=== PATIENT | female | born 1990 | race Caucasian/White ===

== ENCOUNTER 2016-07-18 14:11 | Inpatient (IN) | payer BC ==
[~2016-07-18] VITALS: Ht 170.2 cm; Wt 106.8 kg
[~2016-07-18 14:11] MED LIST: PRENATAL MVI PO
[2016-08-14] VITALS (43 sets, daily range): BP systolic 97–153; BP diastolic 53–87; PULSE 55–82; TEMP 89–98.4
[2016-08-14 07:56] LABS: MEAN CELL VOLUME 96 fl (80.0-100.0); MEAN CORPUSCULAR HGB CONC 34 g/dl (33.0-37.0); MEAN PLATELET VOLUME 8.9 fl (7.4-10.4); PLATELET COUNT 383 K/mm3 (130-400); RED BLOOD COUNT 3.44 M/mm3 (4.10-5.30); REDCELL DISTRIBUTION WIDTH-CV 13.6 % (11.5-14.5); WHITE BLOOD COUNT 19.8 K/mm3 (4.8-10.8)
[2016-08-14 07:57] LABS: ADD PATHOLOGY DIFF REVIEW NO; HEMATOCRIT 32.9 % (37.0-47.0); HEMOGLOBIN 11.3 g/dl (12.5-16.0); MEAN CORPUSCULAR HEMOGLOBIN 33 pg (27.0-31.0)
[2016-08-14 09:12] LABS: BAND 7 % (0-10); EOSINOPHIL 1 % (0-4); NEUTROPHILS 69 % (42.0-75.2); TOTAL CELLS COUNTED 100
[2016-08-14 09:13] LABS: PLATELET ESTIMATE NORMAL (NORMAL)
[2016-08-15 01:10] VITALS: BP 95/48; PULSE 66; TEMP 98.2
[2016-08-15 05:20] VITALS: BP 92/49; PULSE 67; TEMP 98.3
[2016-08-15 07:00] VITALS: BP 100/58; PULSE 60; TEMP 97.7
[2016-08-15] MEDS ORDERED: IBU800 M1 PO (08:52)
[2016-08-15 16:42] VITALS: BP 102/47; PULSE 59; TEMP 98
[2016-08-15 19:08] VITALS: BP 114/43; PULSE 60; TEMP 97.7
[2016-08-16 07:22] VITALS: BP 110/68; PULSE 76; TEMP 98
== END 2016-08-16 10:37 | disposition home or self-care (01) | DRG 775 ==
LOC: EDSTATUS 08-11 09:18 → LDRO 08-11 14:11 → OB 08-14 06:56 → LDR 08-14 06:56 → OB 08-14 20:00
PROVIDERS: Student in an Organized Health Care Education/Training Program
PROC: 10E0XZZ Delivery of Products of Conception, External Approach (ICD-10-PCS; principal; 2016-08-14)
PROC: 0KQM0ZZ Repair Perineum Muscle, Open Approach (ICD-10-PCS; 2016-08-14)
PROC: 3E033VJ Introduction of Other Hormone into Peripheral Vein, Percutaneous Approach (ICD-10-PCS; 2016-08-14)
DX: O48.0 Post-term pregnancy (principal); O99.334 Smoking (tobacco) complicating childbirth; F17.210 Nicotine dependence, cigarettes, uncomplicated; O70.1 Second degree perineal laceration during delivery; O99.213 Obesity complicating pregnancy, third trimester; E66.9 Obesity, unspecified; Z68.30 Body mass index [BMI] 30.0-30.9, adult; Z3A.40 40 weeks gestation of pregnancy; Z37.0 Single live birth
CPT/HCPCS: J2405; J2590; J7120

== ENCOUNTER → 2017-01-10 | Outpatient (CLI) | payer BC ==
[~2017-01-10] MED LIST changes: +IBU800 M1 PO
== END ==
LOC: ZCOL.LAB 15:40
DX: L02.31 Cutaneous abscess of buttock (principal)

== ENCOUNTER 2019-08-02 16:48 | Emergency (ER) | payer MEDICAID ==
[~2019-08-02] VITALS: Ht 170.2 cm; Wt 94.1 kg
[2019-08-02 17:01] VITALS: TEMP 97.8
[2019-08-02 18:20] LABS: BASO % 0.5 % (0.0-2.0); EOS # 0.2 (0.0-0.7); EOS % 2.3 % (0-4.0); GRAN # 4.9 (1.4-6.5); HEMOGLOBIN 12.2 g/dl (12.5-16.0); LYMPH # 2.5 (1.2-3.4); LYMPH % 29.2 % (20.0-51.0); MEAN CELL VOLUME 95 fl (80.0-100.0); MEAN CORPUSCULAR HEMOGLOBIN 32 pg (27.0-31.0); MEAN CORPUSCULAR HGB CONC 34 g/dl (33.0-37.0); MEAN PLATELET VOLUME 8.6 fl (7.4-10.4); MONO # 0.8 (0.1-0.6); MONO % 9.5 % (1.7-9.3); PLATELET COUNT 291 K/mm3 (130-400); RED BLOOD COUNT 3.78 M/mm3 (4.10-5.30); REDCELL DISTRIBUTION WIDTH-CV 12.8 % (11.5-14.5)
[2019-08-02 18:58] LABS: COLLECTION METHOD CLEAN CATCH
[2019-08-02 18:59] LABS: ALBUMIN 3.7 gm/dL (3.5-5.0); BILIRUBIN,TOTAL 0.4 mg/dL (0.0-1.0); CALCIUM 8.8 mg/dL (8.4-10.2); CREATININE, serum 0.6 (0.52-1.25); POTASSIUM 3.3 mmol/L (3.4-5.0)
[2019-08-02 19:04] LABS: MUCOUS Present /lpf; PH 6 (5-8); URINE APPEARANCE Hazy; URINE BACTERIA Rare /hpf; URINE BILIRUBIN Negative (NEGATIVE); URINE BLOOD Negative (NEGATIVE); URINE COLOR Yellow; URINE GLUCOSE Negative (NEGATIVE); URINE KETONE 1+ (NEGATIVE); URINE LEUKOCYTE ESTERASE Negative (NEGATIVE); URINE NITRATE Negative (NEGATIVE); URINE PROTEIN(semi-quant) Negative (NEGATIVE); URINE RBC 0-2 /hpf; URINE UROBILINOGEN Negative (NEGATIVE)
[2019-08-02 19:16] LABS: C-REACTIVE PROTEIN 2.3 mg/dL (0.0-0.9)
[2019-08-02] MEDS ORDERED: PHENERGAN 25 TA25 MG PO (19:16)
[2019-08-02 19:30] VITALS: BP 111/82; PULSE 81
== END 2019-08-02 19:29 | disposition home or self-care (01) ==
LOC: COL.ER 16:48
PROVIDERS: Family Medicine
DX: O99.282 Endocrine, nutritional and metabolic diseases complicating pregnancy, second trimester (principal); O21.9 Vomiting of pregnancy, unspecified
CPT/HCPCS: J2550; J7120

== ENCOUNTER → 2021-07-12 | Outpatient (CLI) | payer MEDICAID ==
[~2021-07-12] MED LIST changes: +PHENERGAN 25 TA25 MG PO
== END ==
LOC: ZCOL.LAB 16:25
DX: L05.01 Pilonidal cyst with abscess (principal)

== ENCOUNTER 2021-08-06 07:55 | Inpatient (IN) | payer MEDICAID ==
[~2021-08-06] VITALS: Ht 170.2 cm; Wt 108.8 kg
[2021-08-07] VITALS (43 sets, daily range): BP systolic 89–145; BP diastolic 37–89; PULSE 55–93; TEMP 97.5–98.5
--- NOTE | 2021-08-07 06:25 | NUR ---
PT AMBULATORY TO UNIT FOR SCHEDULE IOL. PT ORIENTED TO LABOR ROOM, NEW GOWN ON, AND PLACED IN BED ON EFM/TOCO. CATEGORY 1 EFM TRACING UPON ARRIVAL. PT DENIES CONTRACTIONS AND LEAKING OF FLUID. PT REPORTS POSITIVE MOVEMENT.
[2021-08-07 07:09] LABS: HEMOGLOBIN 11.2 g/dl (12.5-16.0); MEAN CELL VOLUME 95 fl (80.0-100.0); MEAN CORPUSCULAR HEMOGLOBIN 32 pg (27-31); MEAN CORPUSCULAR HGB CONC 33 g/dl (33.0-37.0); MEAN PLATELET VOLUME 8.9 fl (7.4-10.4); PLATELET COUNT 413 K/mm3 (130-400); RED BLOOD COUNT 3.54 M/mm3 (4.10-5.30)
[2021-08-07 07:34] LABS: HEMATOCRIT 33.7 % (37.0-47.0)
[2021-08-07] MEDS ORDERED: PRENATAL (07:46)
--- NOTE | 2021-08-07 08:05 | NUR ---
THIS NURSE AT BEDSIDE ASSESSING PT. SVE /-3, UNABLE TO FEEL PRESENTING PART. BALLOTABLE AND HIGH, DIFFICULT CHECK. WILL NOTIFY PROVIDER.
--- NOTE | 2021-08-07 09:06 | NUR ---
AT BEDSIDE ROUNDING ON PATIENT AT THIS TIME. REVIEWS EFM/TOCO. DISCUSS POC WITH PT. VORB TO CONTINUE INCREASING PITOCIN UNTIL 20MU PER PROTOCOL. NO SVE/AROM AT THIS TIME.
--- NOTE | 2021-08-07 10:19 | NUR ---
AT BEDSIDE. REVIEWS EFM/TOCO. DISCUSSES POC WITH PT. SVE -/-2. 1019: AROM WITH CLEAR FLUID. PT TOLERATED PROCEDURE WELL.
[2021-08-07 10:37] LABS: BAND 5 % (0-10); BASOPHIL 1 % (0-2); EOSINOPHIL 1 % (0-4); LYMPHOCYTE 18 % (20.0-51.0); METAMYELOCYTE 2 % (0-0); NEUTROPHILS 70 % (42.0-75.2)
[2021-08-07 10:38] LABS: PLATELET ESTIMATE NORMAL (NORMAL)
--- NOTE | 2021-08-07 11:10 | NUR ---
AT BEDSIDE. SVE /-2, CLEAR FLUID ON GLOVE. VORB TO TITRATE PITOCIN TO NEW MAX OF 30MU PER PROTOCOL PER . NO FURTHER ORDERS AT THIS TIME.
--- NOTE | 2021-08-07 12:55 | NUR ---
AT BEDSIDE. SVE UNCHANGED, 2. REQUEST FOR BS ULTRASOUND. BREECH PRESENTATION CONFIRMED. DECISION FOR PRIMARY CSECTION AT THIS TIME. PITOCIN OFF. PT AND STAFF BEGIN PREPARATION FOR PRIMARY CSECTION. PT TEARFUL BUT STABLE AND AGREEABLE.
--- NOTE | 2021-08-07 13:19 | NUR ---
PT TO OR VIA BED FOR PRIMARY SECTION FOR BREECH PRESENTATION. PT IN STABLE CONDITION. [employer] DOSING EPIDURAL. CATEGORY 1 EFM TRACING PRIOR TO LEAVING LABOR ROOM. VITAL SIGNS STABLE. 1330: DELIVERY OF VIABLE MALE INFANT AT THIS TIME PER , ASSIST. PT TOLERATING PROCEDURE WELL. 1415: PT TO PACU IN STABLE CONDITION. AT BEDSIDE. LOCHIA SMALL, NO CLOTS NOTED. FUNDUS FIRM AT UMBILICUS. OCONNOR DRAINING CLEAR YELLOW URINE APPROPRIATELY. VITAL SIGNS STABLE. PT FULLY ALERT AND ORIENTED, DENIES PAIN, DENIES NAUSEA. 1445: PT TO ROOM IN STABLE CONDITION. FUNDUS REMAINS FIRM AT UMBILICUS. LOCHIA SCANT, NO CLOTS NOTED. VITAL SIGNS STABLE. WILL CONTINUE TO MONITOR PER PP PROTOCOL. .
[2021-08-08] VITALS: BP 103/71; PULSE 66; TEMP 98.3
[2021-08-08 05:30] VITALS: BP 102/49; PULSE 59; TEMP 98.1
[2021-08-08 08:15] VITALS: BP 109/63; PULSE 64; TEMP 97.9
--- NOTE | 2021-08-08 09:10 | NUR ---
Initial visit; Patient thanked Food Service Utility Worker for offering congratulations and God's blessings for the of her son. Food Service Utility Worker thanked family for choosing [place].
[2021-08-08] MEDS ORDERED: PERCOCET 325 MG1 TA2 PO (09:15)
[2021-08-08] MEDS ORDERED: IBU800 M1 PO (09:15)
[2021-08-08 16:00] VITALS: BP 95/48; PULSE 85
[2021-08-08 19:20] VITALS: BP 120/61; PULSE 75; TEMP 98.2
[2021-08-09 07:00] VITALS: BP 111/59; PULSE 74; TEMP 98.1
--- NOTE | 2021-08-09 07:00 | NUR ---
Rests in bed, alert. Request pain medication. Percocet 5/325 mg one given per request and as ordered. Denies other needs at this time
--- NOTE | 2021-08-09 13:00 | NUR ---
Discharge instructions given, verbalizes understanding.
--- NOTE | 2021-08-09 13:10 | NUR ---
Rests in bed, alert. Measles, mumps and rubella injection given to left arm subque as ordered.
== END 2021-08-09 13:10 | disposition home or self-care (01) | DRG 788 ==
LOC: OB 08-07 06:16 → LDR 08-07 06:16 → OB 08-07 15:00
PROVIDERS: ADMIT Student in an Organized Health Care Education/Training Program
PROC: 10D00Z1 Extraction of Products of Conception, Low, Open Approach (ICD-10-PCS; principal; 2021-08-07)
PROC: 10907ZC Drainage of Amniotic Fluid, Therapeutic from Products of Conception, Via Natural or Artificial Opening (ICD-10-PCS; 2021-08-07)
PROC: 3E033VJ Introduction of Other Hormone into Peripheral Vein, Percutaneous Approach (ICD-10-PCS; 2021-08-07)
DX: O32.1XX0 Maternal care for breech presentation, not applicable or unspecified (principal); O99.213 Obesity complicating pregnancy, third trimester; O99.333 Smoking (tobacco) complicating pregnancy, third trimester; Z3A.39 39 weeks gestation of pregnancy; O09.893 Supervision of other high risk pregnancies, third trimester; Z37.0 Single live birth
CPT/HCPCS: J0690; J1885; J2405; J2590; J2795; J7120